=== PATIENT | female | born 1975 | race Caucasian/White ===

== ENCOUNTER 2019-01-13 08:07 | Emergency (ER) | payer MEDICAID ==
[2019-01-13 08:13] VITALS: TEMP 95.8
[2019-01-13] MEDS ORDERED: SODIUM CHLORIDE 0.9% 1,000 ML IV STA (08:27)
[2019-01-13] MEDS ORDERED: ASPIRIN 81 MG PO STA (08:27)
[2019-01-13] MEDS ORDERED: NITROGLYCERIN SL TABS 0.4 MG TAB SUBLINGUAL STA (08:27)
--- NOTE | 2019-01-13 08:50 | ED ---
General Adult HPI - General Chief complaint: Extremity Problem,Nontraumatic Stated complaint: Rt arm/side pain Time Seen by Provider: 01/13/19 08:14 Source: patient, RN notes reviewed Mode of arrival: ambulatory Limitations: no limitations - History of Present Illness Initial comments: Patient 44-year-old female presented to the emergency room today with a chief complaint of right shoulder and rib pain. 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 She states she was finishing her shift working midnights and over the last 2 hours as had some pain to the right shoulder that she noticed slightly worse with some movements. Denies any injury or trauma. States she's felt now that the pain is radiating down the right side of the ch est wall. She doesn't that it's worse if she does certain movements or takes deep breath. Denies any recent travel, leg pain or swelling. Patient denies any past medical history. She states takes vitamins. She denies any other complaints currently. Patient denies any recent fever, chills, shortness of breath, chest pain, back pain, abdominal pain, nausea or vomiting, numbness or tingling, headaches or visual changes, or any other complaints. - Related Data Home Medications Medication Instructions Recorded Confirmed Multivitamins, Thera [Multivitamin 1 tab PO DAILY 01/13/19 01/13/19 (formulary)] Allergies Allergy/AdvReac Type Severity Reaction Status Date / Time hydrocodone Allergy Itching Verified 01/13/19 08:29 Review of Systems ROS Statement: Those systems with pertinent positive or pertinent negative responses have been documented in the HPI. ROS Other: All systems not noted in ROS Statement are negative. Past Medical History Past Medical History: No Reported History History of Any Multi-Drug Resistant Organisms: None Reported Past Surgical History: Section Past Psychological History: Anxiety Smoking Status: Never smoker Past Alcohol Use History: None Reported Past Drug Use History: None Reported General Exam - General Exam Comments Initial Comments: General: The patient is awake and alert, in no distress, and does not appear acutely ill. Eye: Pupils are equal, round and reactive to light, extra-ocular movements are intact. No nystagmus. There is normal conjunctiva bilaterally. No signs of icterus. Ears, nose, mouth and throat: There are moist mucous membranes and no oral lesions. Neck: The neck is supple, there is no tenderness or JVD. Cardiovascular: There is a regular rate and rhythm. No murmur, rub or gallop is appreciated. Respiratory: Lungs are clear to auscultation, respirations are non-labored, breath sounds are equal. No wheezes, stridor, rales, or rhonchi. Musculoskeletal: Normal ROM. Tenderness in cervical, thoracic, lumbar spine. No tenderness over the right shoulder on palpation. Strength 5/5. Sensation intact. Radial Pulses equal bilaterally 2+. Neurological: A&O x 3. CN II-XII intact, There are no obvious motor or sensory deficits. Coordination appears grossly intact. Speech is normal. Skin: Skin is warm and dry and no rashes or lesions are noted. Psychiatric: Cooperative, appropriate mood & affect, normal judgment. Limitations: no limitations Course Vital Signs 01/13/19 01/13/19 01/13/19 08:10 08:50 09:00 Temperature 95.8 F L Pulse Rate 78 67 49 L Respiratory 18 20 23 Rate Blood Pressure 145/85 142/78 O2 Sat by Pulse 97 Oximetry 01/13/19 01/13/19 01/13/19 09:30 10:00 10:30 Temperature Pulse Rate 59 L 63 59 L Respiratory 22 15 17 Rate Blood Pressure 136/92 130/88 128/91 O2 Sat by Pulse 99 99 100 Oximetry 01/13/19 01/13/19 01/13/19 11:00 11:30 12:00 Temperature Pulse Rate 58 L 66 59 L Respiratory 20 15 18 Rate Blood Pressure 130/84 133/83 O2 Sat by Pulse Oximetry 01/13/19 01/13/19 12:30 12:37 Temperature Pulse Rate 62 Respiratory 21 Rate Blood Pressure 123/86 123/86 O2 Sat by Pulse Oximetry EKG Findings - EKG Comments: EKG Findings:: EKG performed at 844: Shows sinus bradycardia 58 bpm. TX interval 144. QRS 94. QT/QTc 464/455. No acute ST changes. Does show frequ ent PVCs. Second EKG performed at 912: Shows sinus bradycardia at 54 beats per minute. TX interval 140. QRS 96. QT/QTc 460/436. No change from previous. Medical Decision Making - Medical Decision Making Patient reexamined at this time. No signs of distress. Patient' labs were reviewed and negative troponin. Patient did have relief after nitroglycerin sublingually here in emergency room. Options were discussed with patient about admission to the hospital. Risk and benefits were discussed. Patient has declined admission but is agreeable to a repeat troponin 3 hours after the first. Repeat troponin was obtained and is negative. At this time patient continues to remain comfortable and feels couple being discharged. She is adv ised close follow family doctor. Advised return here to emergency room if any symptoms increase or worsen or for any other concerns. - Lab Data Result diagrams: 01/13/19 09:18 01/13/19 09:18 Lab Results 01/13/19 01/13/19 01/13/19 Range/Units 09:18 09:18 09:18 WBC 10.1 (3.8-10.6) k/uL RBC 4.29 (3.80-5.40) m/uL Hgb 12.4 (11.4-16.0) gm/dL Hct 37.9 (34.0-46.0) % MCV 88.2 (80.0-100.0) fL MCH 28.9 (25.0-35.0) pg MCHC 32.8 (31.0-37.0) g/dL RDW 13.5 (11.5-15.5) % Plt Count 284 (150-450) k/uL Neutrophils % 68 % Lymphocytes % 22 % Monocytes % 5 % Eosinophils % 3 % Basophils % 0 % Neutrophils # 6.9 (1.3-7.7) k/uL Lymphocytes # 2.2 (1.0-4.8) k/uL Monocytes # 0.5 (0-1.0) k/uL Eosinophils # 0.3 (0-0.7) k/uL Basophils # 0.0 (0-0.2) k/uL PT 9.8 (9.0-12.0) sec INR 0.9 (<1.2) APTT 24.7 (22.0-30.0) sec Sodium 138 (137-145) mmol/L Potassium 4.2 (3.5-5.1) mmol/L Chloride 106 (98-107) mmol/L Carbon Dioxide 25 (22-30) mmol/L Anion Gap 7 mmol/L BUN 10 (7-17) mg/dL Creatinine 0.58 (0.52-1.04) mg/dL Est GFR (CKD-EPI)AfAm >90 (>60 ml/min/1.73 sqM) Est GFR (CKD-EPI)NonAf >90 (>60 ml/min/1.73 sqM) Glucose 91 (74-99) mg/dL Calcium 9.5 (8.4-10.2) mg/dL Magnesium 2.0 (1.6-2.3) mg/dL Total Bilirubin 0.5 (0.2-1.3) mg/dL AST 14 (14-36) U/L ALT 15 (9-52) U/L Alkaline Phosphatase 51 (38-126) U/L Troponin I (0.000-0.034) ng/mL Total Protein 7.6 (6.3-8.2) g/dL Albumin 4.3 (3.5-5.0) g/dL 01/13/19 01/13/19 Range/Units 09:18 12:39 WBC (3.8-10.6) k/uL RBC (3.80-5.40) m/uL Hgb (11.4-16.0) gm/dL Hct (34.0-46.0) % MCV (80.0-100.0) fL MCH (25.0-35.0) pg MCHC (31.0-37.0) g/dL RDW (11.5-15.5) % Plt Count (150-450) k/uL Neutrophils % % Lymphocytes % % Monocytes % % Eosinophils % % Basophils % % Neutrophils # (1.3-7.7) k/uL Lymphocytes # (1.0-4.8) k/uL Monocytes # (0-1.0) k/uL Eosinophils # (0-0.7) k/uL Basophils # (0-0.2) k/uL PT (9.0-12.0) sec INR (<1.2) APTT (22.0-30.0) sec Sodium (137-145) mmol/L Potassium (3.5-5.1) mmol/L Chloride (98-107) mmol/L Carbon Dioxide (22-30) mmol/L Anion Gap mmol/L BUN (7-17) mg/dL Creatinine (0.52-1.04) mg/dL Est GFR (CKD-EPI)AfAm (>60 ml/min/1.73 sqM) Est GFR (CKD-EPI)NonAf (>60 ml/min/1.73 sqM) Glucose (74-99) mg/dL Calcium (8.4-10.2) mg/dL Magnesium (1.6-2.3) mg/dL Total Bilirubin (0.2-1.3) mg/dL AST (14-36) U/L ALT (9-52) U/L Alkaline Phosphatase (38-126) U/L Troponin I <0.012 <0.012 (0.000-0.034) ng/mL Total Protein (6.3-8.2) g/dL Albumin (3.5-5.0) g/dL Disposition Clinical Impression: Atypical chest pain Disposition: HOME SELF-CARE Condition: Good Additional Instructions: Please follow-up with family doctor in the next 2 days. Please return to emergency room if the symptoms increase or worsen or for any other concerns. Is patient prescribed a controlled substance at d/c from ED?: No Referrals: None,Stated [Primary Care Provider] - 1-2 days Pierre Greene DO [STAFF PHYSICIAN] - 1-2 days Time of Disposition: 13:47
[2019-01-13 09:30] LABS: Basophils % (A) 0 %; Eosinophils # (A) 0.3 k/uL (0-0.7); Eosinophils % (A) 3 %; HCT 37.9 % (34.0-46.0); HGB 12.4 gm/dL (11.4-16.0); Lymphocytes # (A) 2.2 k/uL (1.0-4.8); Lymphocytes % (A) 22 %; MCH 28.9 pg (25.0-35.0); MCHC 32.8 g/dL (31.0-37.0); MCV 88.2 fL (80.0-100.0); Mean Platelet Volume 7.8; Monocytes # (A) 0.5 k/uL (0-1.0); Monocytes % (A) 5 %; Neutrophils # (A) 6.9 k/uL (1.3-7.7); Neutrophils % (A) 68 %; Platelet Count 284 k/uL (150-450); RBC 4.29 m/uL (3.80-5.40); RDW 13.5 % (11.5-15.5); WBC 10.1 k/uL (3.8-10.6)
[2019-01-13 09:42] LABS: ALT 15 U/L (9-52); AST 14 U/L (14-36); Albumin 4.3 g/dL (3.5-5.0); Alkaline Phosphatase 51 U/L (38-126); Anion Gap 7 mmol/L; Blood Urea Nitrogen 10 mg/dL (7-17); Calcium 9.5 mg/dL (8.4-10.2); Carbon Dioxide 25 mmol/L (22-30); Chloride 106 mmol/L (98-107); Glucose 91 mg/dL (74-99); Potassium 4.2 mmol/L (3.5-5.1); Sodium 138 mmol/L (137-145); Total Bilirubin 0.5 mg/dL (0.2-1.3); Total Protein 7.6 g/dL (6.3-8.2)
[2019-01-13 09:43] LABS: INR 0.9 (<1.2); Partial Thromboplastin Time 24.7 sec (22.0-30.0); Prothrombin Time 9.8 sec (9.0-12.0)
--- NOTE | 2019-01-13 09:54 | XR ---
EXAMINATION TYPE: XR chest 2V DATE OF EXAM: 01/13/2019 COMPARISON: NONE HISTORY: Right shoulder and chest pain TECHNIQUE: Frontal and lateral views of the chest are obtained. FINDINGS: There is no focal air space opacity, pleural effusion, or pneumothorax seen. The cardiac silhouette size is within normal limits. The osseous structures are intact. IMPRESSION: No acute cardiopulmonary process.
[2019-01-13 12:37] VITALS: BP 123/86; PULSE 62; RESP 21
== END 2019-01-13 14:20 | disposition home or self-care (01) ==
LOC: EC 08:07
DX: R07.89 Other chest pain (principal); M25.511 Pain in right shoulder; R07.81 Pleurodynia; Z88.5 Allergy status to narcotic agent
CPT/HCPCS: 36415; 71046; 80053; 83735; 84484; 85025; 85610; 85730; 96360; 96361; 99283

== ENCOUNTER 2019-04-06 02:26 | Emergency (ER) | payer MEDICAID ==
[2019-04-06] MEDS ORDERED: LORazepam 2 MG/ML INJ IM STA (02:43)
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
[2019-04-06 04:14] VITALS: BP 130/80; PULSE 87; RESP 18; TEMP 97.9
== END 2019-04-06 04:14 | disposition home or self-care (01) ==
LOC: EC 02:26
DX: F41.0 Panic disorder [episodic paroxysmal anxiety] (principal); R03.0 Elevated blood-pressure reading, without diagnosis of hypertension; F43.9 Reaction to severe stress, unspecified; Z88.5 Allergy status to narcotic agent
CPT/HCPCS: 93005; 99283; 96372; J2060

== ENCOUNTER 2021-05-05 20:49 | Emergency (ER) | payer BC, MEDICAID ==
[2021-05-05 20:58] VITALS: BP 138/81; PULSE 103; RESP 19; TEMP 98.3
--- NOTE | 2021-05-05 22:03 | XR ---
EXAMINATION TYPE: XR wrist complete LT DATE OF EXAM: 05/05/2021 COMPARISON: None HISTORY: Fall, pain TECHNIQUE: 4 view left wrist FINDINGS: Soft tissue swelling over the dorsum of the wrist may be present. There is an oblique fracture extending into the articular surface of the radius from the lateral meta physis. This may be complex with extension towards the ulnar aspect of the radial metaphysis. Cortica l disruption of the medial site however is not identified. A longitudinal fragment extends up the sha ft of the radius. No additional fractures are identified. IMPRESSION: 1. Comminuted fracture distal metaphyseal radius. The major fracture fragment extends from the later al metaphyseal radius to the articular surface. There is a longitudinal component into the shaft of t he radius and possible extension towards the medial metaphyseal radius. 2. Soft tissue swelling over the fracture site
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
--- NOTE | 2021-05-05 22:38 | ED ---
Medical Decision Making - Radiology Data Radiology results: report reviewed, image reviewed X-ray left wrist: Comminuted fracture distal metaphyseal radius. The major fracture fragment extensive the lateral metaphyseal radius to the articular surface. There is a longitudinal component into the shaft of the radius and possible extension towards the medial deficit radius. Soft tissue swelling over the fracture site. Disposition Clinical Impression: Distal radius fracture Disposition: HOME SELF-CARE Condition: Stable Instructions (If sedation given, give patient instructions): Arm Fracture in A dults (ED) Additional Instructions: Please return to the Emergency Department if symptoms worsen or any other concerns. Follow-up with primary care and orthopedist in the next 1-2 days. Keep splint on throughout the day can take off to bathe. Is patient prescribed a controlled substance at d/c from ED?: No Referrals: Reynold Sepulveda Jr, DO [Primary Care Provider] - 1-2 days Naseem Shepard DO [Doctor of Osteopathic Medicine] - 1-2 days Time of Disposition: 22:38
== END 2021-05-05 22:55 | disposition home or self-care (01) ==
LOC: EC 20:49
DX: S52.572A Other intraarticular fracture of lower end of left radius, initial encounter for closed fracture (principal); V19.9XXA Pedal cyclist (driver) (passenger) injured in unspecified traffic accident, initial encounter
CPT/HCPCS: 29125; 99283